=== PATIENT | male | born 1995 | race Hispanic/Latino ===

== ENCOUNTER 2023-09-26 09:52 | Outpatient (CLI) | payer OTHER | END 2023-09-26 09:53 | disposition home or self-care (01) | LOC: RAD-FRANK 09:52 | PROVIDERS: ATTEND Nurse Practitioner Family | DX: M79.672 Pain in left foot (principal); R22.42 Localized swelling, mass and lump, left lower limb ==

== ENCOUNTER 2025-08-08 14:14 | Emergency (ER) | payer SELFPAY ==
[2025-08-08] MEDS ORDERED: Ketorolac Tromethamine 30 MG (1 mL) VIAL ONE (16:31)
[2025-08-08 17:04] LABS: Bacteria/HPF None Seen HPF (None Seen); CAUTI Indications for Culture Pelvic or flank pain; Glucose, Urine (Dipstick) Normal (Negative); Leukocyte Negative Leu/uL (Negative); Protein, Urine (Dipstick) Negative (Neg-Trace); RBC/HPF 0-3 HPF (0-3); Specific Gravity, Urine 1.027 (1.002-1.036); WBC/HPF 0-3 HPF (0-3)
[2025-08-08 17:05] LABS: Urine Culture Reflex No No
== END 2025-08-08 18:24 | disposition home or self-care (01) ==
LOC: ERS 14:14
DX: M54.50 Low back pain, unspecified (principal); N43.3 Hydrocele, unspecified; I10 Essential (primary) hypertension
CPT/HCPCS: 76870; 81001; 93976; 96372; 99284; J1885